=== PATIENT | male | born 1965 | race Caucasian/White ===

== ENCOUNTER 2017-07-17 17:10 | Emergency (ER) | payer MEDICAID, MEDICARE ==
--- NOTE | 2017-07-17 18:13 | UC ---
Lower Extremity/Ankle HPI - HPI Summary HPI Summary: Pt presents with right knee pain. He came back from vacay to [place] on Jun 17 and has hurt ever since. Denies specific injury. Worse with ambulation and weight bearing. Wearing knee brace today and has been taking ibuprofen for pain - mild relief. No previous injuries to that LE - History of Current Complaint Chief Complaint: UCLowerExtremity Stated Complaint: KNEE PAIN Time Seen by Provider: 07/17/17 17:46 Hx Obtained From: Patient Onset/Duration: Gradual Onset Severity Initially: Mild Severity Currently: Moderate Pain Intensity: 7 Pain Scale Used: 0-10 Numeric Aggravating Factor(s): Standing, Ambulation Alleviating Factor(s): Rest Able to Bear Weight: Yes - Allergies/Home Medications Allergies/Adverse Reactions: Allergies Allergy/AdvReac Type Severity Reaction Status Date / Time No Known Allergies Allergy Verified 07/17/17 17:33 Home Medications: Home Medications NK [No Home Medications Reported] 07/17/17 [History Confirmed 07/17/17] PMH/Surg Hx/FS Hx/Imm Hx Previously Healthy: Yes - Surgical History Surgical History: None - Social History Occupation: Employed Full-time Lives: Alone Alcohol Use: None Substance Use Type: None Smoking Status (MU): Never Smoked Tobacco Review of Systems Constitutional: Negative Respiratory: Negative Cardiovascular: Negative Neurovascular: Negative Musculoskeletal: Decreased ROM - Right knee, Edema - Right knee, Other: - Pain right knee Neurological: Negative All Other Systems Reviewed And Are Negative: Yes Physical Exam Triage Information Reviewed: Yes Appearance: Well-Appearing, Well-Nourished Vital Signs: Initial Vital Signs Temp 98.7 F 07/17/17 17:28 Pulse 82 07/17/17 17:28 Resp 20 07/17/17 17:28 BP 168/103 07/17/17 17:28 Pulse Ox 98 07/17/17 17:28 Vital Signs Reviewed: Yes Musculoskeletal: Positive: Strength Intact, ROM Limited @ - Right knee >90 deg due to pain. Full extension., Edema @ - mild right knee, Other: - Negative pricilla, A/P drawer, Freddie, and varus/valgus stress. Neurological: Positive: Alert Psychological: Positive: Age Appropriate Behavior Skin: Positive: Other - No ecchymosis right knee. Negative: rashes Lower Extremity Course/Dx - Course Course Of Treatment: XR knee. 1. No traumatic injury or significant arthropathic change at the RIGHT knee. 2. 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 In absence of prior exams to document stability with none available on the [facility] PACS radiographic surveillance beginning in 3 months time to assess for stability would be suggested. However if pain localizes to this region consider bone scan or contrast-enhanced MRI for further assessment. Ibuprofen for pain. Continue with brace. Light duty at work. F/u with orthopedics - Differential Dx/Diagnosis Differential Diagnosis/HQI/PQRI: Arthritis, Fracture (Closed), Sprain, Strain, Other - Meniscus tear. Provider Diagnoses: Internal derangement of the knee. Tibia fibroma Discharge - Discharge Plan Condition: Stable Disposition: HOME Patient Education Materials: Knee Sprain (ED) Forms: *Work Release Referrals: Mike Romero MD [Primary Care Provider] - Additional Instructions: 1) Follow up with Orthopedics at their next available appointment for further evaluation of your knee pain. The number is provided below. 2) Continue to wear the knee brace as tolerated for support. 3) Ibuprofen OTC for pain Your blood pressure was high at today's visit - please see your PCP within 4 weeks for recheck and re-evaluation. If you develop fever, SOB, chest pain, new or worsening symptoms - please call our office or go to ED. [facility] [address] [place] [id number]
--- NOTE | 2017-07-17 18:36 | RAD ---
Indication: RIGHT knee pain for one month without preceding injury. Comparison: None. Technique: RIGHT knee: AP, tunnel, lateral, sunrise views. Report: Normal articular alignment. Negative for joint effusion or fracture. Preserved joint spaces. Expansile probable cortical based lucent lesion at the lateral proximal metaphysis of the tibia measuring up to 3.4 cm AP by 3.3 cm transverse by 9.2 cm cephalocaudal. The lesion demonstrates a thin narrow sclerotic margin consistent with an indolent lesion. IMPRESSION: 1. No traumatic injury or significant arthropathic change at the RIGHT knee. 2. 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 In absence of prior exams to document stability with none available on the [facility] PACS radiographic surveillance beginning in 3 months time to assess for stability would be suggested. However if pain localizes to this region consider bone scan or contrast-enhanced MRI for further assessment.
== END 2017-07-17 19:09 | disposition home or self-care (01) ==
LOC: UCEAST 17:10
DX: M23.91 Unspecified internal derangement of right knee (principal); M89.8X6 Other specified disorders of bone, lower leg
CPT/HCPCS: 99201; G0463

== ENCOUNTER 2023-05-19 03:23 | Observation (INO) ==
[2023-05-19] MEDS ORDERED: Piperacillin/Tazobac 3.375 BAG 3.375 GM/100 ML BAG IV ONE (03:51)
[2023-05-19] MEDS ORDERED: Vancomycin 1,500 MG in NS 0.9% 250 ml 250 ML IVPB ONE (03:51)
[2023-05-19 04:28] LABS: Hematocrit 23.5 % (38-53); Hemoglobin 7.3 g/dL (13.2-16.3); Mean Corpuscular Hemoglobin 21.6 pg (27-33); Mean Corpuscular Hgb Conc 30.9 g/dL (31-36); Mean Platelet Volume 6.3 fL (7.5-11.2); Platelet Count 586 10^3/uL (150-450); Red Blood Count 3.37 10^6/uL (4.06-5.63); Red Cell Distribution Width 18.2 % (12-17); White Blood Count 10.2 10^3/uL (3.6-10.2)
[2023-05-19 04:39] LABS: Activated Partial Thrombo Time 34.2 seconds (26.0-38.0); INR 1.25 (0.83-1.13)
[2023-05-19 04:51] LABS: Albumin 2.9 g/dL (3.2-5.2); Calcium 7.8 mg/dL (8.6-10.3); Potassium 3.6 mmol/L (3.5-5.0); Total Bilirubin 0.6 mg/dL (0.2-1.0)
[2023-05-19 04:57] LABS: Albumin/Globulin Ratio 0.5 (1-3); C Reactive Protein 58.46 mg/L (<8.01); Creatinine, Serum 1.16 mg/dL (0.67-1.17); Globulin 6.2 g/dL (2-4); Total Protein 9.1 g/dL (6.4-8.9); eGFR CKD-EPI 73.5 (>60)
[2023-05-19 05:08] LABS: Hypochromasia 1+; Macrocytosis 1+; Microcytosis 1+
[2023-05-19 05:09] LABS: ABS Basophils 0.1 10^3/uL (0.0-0.1); ABS Eosinophils 0.6 10^3/uL (0.0-0.5); ABS Lymphocytes 1.5 10^3/uL (1.0-4.8); ABS Monocytes 0.7 10^3/uL (0.0-1.1); ABS Neutrophils 7.3 10^3/uL (1.5-7.6); Anisocytosis 1+; Eosinophil % 6.4 %; Lymphocyte % 14.4 %; Target Cells 1+
[2023-05-19 05:34] LABS: Erythrocyte Sed Rate 86 mm/Hr (0-19)
[2023-05-19] MEDS: Furosemide 40 mg/4 ml IV VIAL IV SLOW PU SCH (07:46)
[2023-05-19] MEDS: Enoxaparin 40 MG/0.4 ML SYR SUBCUT SCH (07:46)
[2023-05-19 09:15] LABS: % Iron Saturation 5 % (15-55); .Transferrin 275 mg/dL (203-362); Iron < 20 ug/dL (50-212); Total Iron Binding Capacity 385 mcg/dL (250-450); Unsaturated Iron Binding 365 ug/dL
[2023-05-19 09:29] LABS: Ferritin 9.6 ng/mL (24-336)
[2023-05-19] MEDS ORDERED: cefTRIAXone 1 gm/50 mL D5W 1 GM/50 ML BAG IV SCH (13:00)
[2023-05-19] MEDS ORDERED: Iron Sucrose 200 MG in NS 0.9% 100 ml BAG 100 ML IVPB ONE (13:54)
[2023-05-19 16:38] LABS: Calcium 8.1 mg/dL (8.6-10.3); Potassium 3.8 mmol/L (3.5-5.0)
[2023-05-19 16:44] LABS: Creatinine, Serum 0.97 mg/dL (0.67-1.17); eGFR CKD-EPI 91.1 (>60)
[2023-05-19 17:16] LABS: RBC Morphology Normal (Normal)
[2023-05-19 17:17] LABS: Hypochromasia 2+; Microcytosis 2+
[2023-05-19 17:18] LABS: ABS Basophils 0.1 10^3/uL (0.0-0.1); ABS Eosinophils 0.5 10^3/uL (0.0-0.5); ABS Lymphocytes 1.1 10^3/uL (1.0-4.8); ABS Monocytes 0.6 10^3/uL (0.0-1.1); ABS Nucleated RBC 0.01 10^3/ul; Anisocytosis 1+; Eosinophil % 6.8 %; Hematocrit 24.9 % (38-53); Hemoglobin 7.7 g/dL (13.2-16.3); Lymphocyte % 15.4 %; Mean Corpuscular Hemoglobin 21.6 pg (27-33); Mean Corpuscular Hgb Conc 30.8 g/dL (31-36); Mean Corpuscular Volume 70.2 fL (80-97); Mean Platelet Volume 6.4 fL (7.5-11.2); Nucleated Red Blood Cells % 0.2 /100 WBC (0.0-0.4); Platelet Count 507 10^3/uL (150-450); Red Blood Count 3.55 10^6/uL (4.06-5.63); Red Cell Distribution Width 17.9 % (12-17); White Blood Count 7.3 10^3/uL (3.6-10.2)
[2023-05-19 18:49] LABS: Magnesium 1.8 mg/dL (1.9-2.7)
[2023-05-20] MEDS: Furosemide 40 mg/4 ml IV VIAL IV SLOW PU SCH (08:52)
[2023-05-20] MEDS: Enoxaparin 40 MG/0.4 ML SYR SUBCUT SCH (08:52)
[2023-05-20] MEDS ORDERED: Iron Sucrose 200 MG in NS 0.9% 100 ml IVPB SCH (09:00)
[2023-05-20] MEDS ORDERED: Iron Sucrose 20 MG/ML 5 ML VIAL IV PUSH SCH (09:00)
[2023-05-20 09:21] LABS: Hematocrit 24.8 % (38-53); Hemoglobin 7.7 g/dL (13.2-16.3); Mean Corpuscular Hemoglobin 21.6 pg (27-33); Mean Corpuscular Volume 69.7 fL (80-97); Mean Platelet Volume 6.3 fL (7.5-11.2); Platelet Count 643 10^3/uL (150-450); Red Blood Count 3.56 10^6/uL (4.06-5.63); Red Cell Distribution Width 18.3 % (12-17); White Blood Count 7.8 10^3/uL (3.6-10.2)
[2023-05-20 09:55] LABS: Calcium 8.5 mg/dL (8.6-10.3); Creatinine, Serum 1.13 mg/dL (0.67-1.17); Potassium 4.6 mmol/L (3.5-5.0); eGFR CKD-EPI 75.8 (>60)
[2023-05-20 10:00] LABS: Folate 5.92 ng/mL (5.90-24.80)
[2023-05-20 10:40] LABS: Anisocytosis 1+; Hypochromasia 1+; Microcytosis 3+
[2023-05-20 10:43] LABS: ABS Basophils 0.1 10^3/uL (0.0-0.1); ABS Eosinophils 0.7 10^3/uL (0.0-0.5); ABS Lymphocytes 1.3 10^3/uL (1.0-4.8); ABS Monocytes 0.7 10^3/uL (0.0-1.1); Nucleated Red Blood Cells % 0.1 /100 WBC (0.0-0.4)
[2023-05-20 11:49] LABS: HDL Cholesterol 28.8 mg/dL
[2023-05-20] MEDS ORDERED: cefTRIAXone 1 gm/50 mL D5W 1 GM/50 ML BAG IV SCH (13:00)
[2023-05-20 14:46] VITALS: BP 147/79
[2023-05-23 11:16] LABS: Albumin 8.1 mg/dL; Creatinine, Random, U 125 mg/dL (16 - 326); Gamma Globulin 11.9 mg/dL; Protein,Total, Random Urine 35 mg/dL; Protein/Creatinine Ratio 0.28 mg/mg (<0.18)
[2023-05-23 11:57] LABS: Albumin 2.5 g/dL (3.4-4.7); Flag, M-protein Isotype Negative (Negative)
== END 2023-05-20 17:34 | disposition home or self-care (01) ==
LOC: EDHOLD 03:23 → ED 03:23 → SUATTDRO 06:41 → MED 13:30
PROVIDERS: ADMIT Internal Medicine; ATTEND Internal Medicine

== ENCOUNTER 2023-09-15 03:27 | Inpatient (IN) ==
[2023-09-15] MEDS ORDERED: Cefepime 2 GM in Dextrose 2 GM/50 ML BAG IV ONE (03:56)
[2023-09-15] MEDS ORDERED: Vancomycin 2,000 MG in NS 0.9% 250 ml 250 ML IVPB SCH (04:00)
[2023-09-15 05:21] LABS: Hematocrit 27.7 % (38-53); Hemoglobin 8.6 g/dL (13.2-16.3); Mean Corpuscular Hemoglobin 21.6 pg (27-33); Mean Corpuscular Hgb Conc 30.9 g/dL (31-36); Mean Corpuscular Volume 69.8 fL (80-97); Mean Platelet Volume 7.1 fL (7.5-11.2); Platelet Count 440 10^3/uL (150-450); Red Blood Count 3.97 10^6/uL (4.06-5.63); Red Cell Distribution Width 19.8 % (12-17); White Blood Count 22.8 10^3/uL (3.6-10.2)
[2023-09-15 05:34] LABS: Albumin 3.3 g/dL (3.2-5.2); Albumin/Globulin Ratio 0.5 (1-3); C Reactive Protein 333.98 mg/L (<8.01); Calcium 8.6 mg/dL (8.6-10.3); Creatinine, Serum 1.41 mg/dL (0.67-1.17); Globulin 6.3 g/dL (2-4); Potassium 3.6 mmol/L (3.5-5.0); Total Bilirubin 1.4 mg/dL (0.2-1.0); Total Protein 9.6 g/dL (6.4-8.9); eGFR CKD-EPI 57.8 (>60)
[2023-09-15 05:45] LABS: ABS Lymphocytes 0.7 10^3/uL (1.0-4.8); ABS Monocytes 0.6 10^3/uL (0.0-1.1); ABS Neutrophils 21.4 10^3/uL (1.5-7.6); Lymphocyte % 3.2 %
[2023-09-15] MEDS ORDERED: Lactated Ringers 1000 ml BAG 1,000 ML IV ONE (05:56)
[2023-09-15] MEDS ORDERED: Vancomycin 2,000 MG in NS 0.9% 500 ml BAG 500 ML IVPB ONE (06:00)
[2023-09-15] MEDS ORDERED: Senna TAB 8.6 mg TAB PO PRN (07:46)
[2023-09-15] MEDS ORDERED: Ondansetron 4 mg VIAL 2 MG/ML 2 ml VIAL IV PRN (07:46)
[2023-09-15] MEDS ORDERED: Polyethylene Glycol 3350 17 GM PACKET PO PRN (07:46)
[2023-09-15] MEDS: cefTRIAXone 1 gm/50 mL D5W 1 GM/50 ML BAG IV SCH (10:13)
[2023-09-15 17:00] LABS: Calcium 7.8 mg/dL (8.6-10.3); Creatinine, Serum 1.13 mg/dL (0.67-1.17); Potassium 3.9 mmol/L (3.5-5.0); eGFR CKD-EPI 75.3 (>60)
[2023-09-15] MEDS: Enoxaparin 40 MG/0.4 ML SYR SUBCUT SCH (22:15)
[2023-09-16] MEDS: cefTRIAXone 1 gm/50 mL D5W 1 GM/50 ML BAG IV SCH (08:31)
[2023-09-16] MEDS: Lubriderm LOTION 180 ML BTL TOPICAL SCH ×2 (10:50→21:05)
[2023-09-16 11:29] LABS: ABS Eosinophils 0.2 10^3/uL (0.0-0.5); ABS Monocytes 0.7 10^3/uL (0.0-1.1); ABS Neutrophils 11.7 10^3/uL (1.5-7.6); ABS Nucleated RBC 0.02 10^3/ul; Eosinophil % 1.2 %; Hematocrit 25.8 % (38-53); Lymphocyte % 7.4 %; Mean Corpuscular Hemoglobin 21.5 pg (27-33); Mean Corpuscular Volume 69.5 fL (80-97); Mean Platelet Volume 7.3 fL (7.5-11.2); Nucleated Red Blood Cells % 0.1 %/100WBC (0.0-0.8); Platelet Count 382 10^3/uL (150-450); Red Blood Count 3.72 10^6/uL (4.06-5.63); Red Cell Distribution Width 19.4 % (12-17); White Blood Count 13.7 10^3/uL (3.6-10.2)
[2023-09-16 11:45] LABS: Calcium 8.2 mg/dL (8.6-10.3); Creatinine, Serum 1.07 mg/dL (0.67-1.17); Potassium 3.9 mmol/L (3.5-5.0); eGFR CKD-EPI 80.4 (>60)
[2023-09-16] MEDS: Enoxaparin 40 MG/0.4 ML SYR SUBCUT SCH (21:05)
[2023-09-17 07:49] LABS: ABS Eosinophils 0.3 10^3/uL (0.0-0.5); ABS Lymphocytes 1.4 10^3/uL (1.0-4.8); ABS Monocytes 0.9 10^3/uL (0.0-1.1); ABS Neutrophils 9.3 10^3/uL (1.5-7.6); ABS Nucleated RBC 0.01 10^3/ul; Eosinophil % 2.7 %; Hematocrit 26.1 % (38-53); Hemoglobin 8.1 g/dL (13.2-16.3); Lymphocyte % 11.8 %; Mean Corpuscular Hemoglobin 21.7 pg (27-33); Mean Corpuscular Hgb Conc 31.2 g/dL (31-36); Mean Corpuscular Volume 69.5 fL (80-97); Mean Platelet Volume 7.7 fL (7.5-11.2); Nucleated Red Blood Cells % 0.1 %/100WBC (0.0-0.8); Platelet Count 416 10^3/uL (150-450); Red Blood Count 3.75 10^6/uL (4.06-5.63); Red Cell Distribution Width 19.6 % (12-17); White Blood Count 12.1 10^3/uL (3.6-10.2)
[2023-09-17 08:12] LABS: Calcium 8.2 mg/dL (8.6-10.3); Potassium 4.1 mmol/L (3.5-5.0); eGFR CKD-EPI 87.2 (>60)
[2023-09-17] MEDS: cefTRIAXone 1 gm/50 mL D5W 1 GM/50 ML BAG IV SCH (09:36)
[2023-09-17] MEDS: Lubriderm LOTION 180 ML BTL TOPICAL SCH ×2 (09:36→20:48)
[2023-09-17] MEDS ORDERED: Ferric Gluconate IV 250 MG in NS 0.9% 100 ml BAG 200 ML IVPB SCH (12:00)
[2023-09-17] MEDS: Ferric Gluconate IV 250 MG in NS 0.9% 250 ml 200 ML IVPB SCH (13:37)
[2023-09-17] MEDS: Enoxaparin 40 MG/0.4 ML SYR SUBCUT SCH (20:48)
[2023-09-18 09:51] LABS: Hematocrit 27.2 % (38-53); Hemoglobin 8.5 g/dL (13.2-16.3); Mean Corpuscular Hemoglobin 21.7 pg (27-33); Mean Corpuscular Hgb Conc 31.1 g/dL (31-36); Mean Corpuscular Volume 69.7 fL (80-97); Mean Platelet Volume 7.4 fL (7.5-11.2); Platelet Count 515 10^3/uL (150-450); Red Blood Count 3.91 10^6/uL (4.06-5.63); Red Cell Distribution Width 19.5 % (12-17); White Blood Count 12.8 10^3/uL (3.6-10.2)
[2023-09-18 09:58] LABS: Calcium 8.3 mg/dL (8.6-10.3); Creatinine, Serum 1.02 mg/dL (0.67-1.17); Potassium 4.2 mmol/L (3.5-5.0); eGFR CKD-EPI 85.2 (>60)
[2023-09-18] MEDS: cefTRIAXone 1 gm/50 mL D5W 1 GM/50 ML BAG IV SCH (10:16)
[2023-09-18 10:57] LABS: ABS Basophils 0.1 10^3/uL (0.0-0.1); ABS Eosinophils 0.5 10^3/uL (0.0-0.5); ABS Lymphocytes 1.4 10^3/uL (1.0-4.8); ABS Monocytes 0.7 10^3/uL (0.0-1.1); ABS Nucleated RBC 0.01 10^3/ul; Eosinophil % 4.1 %; Hypochromasia 1+; Lymphocyte % 11.2 %; Nucleated Red Blood Cells % 0.1 %/100WBC (0.0-0.8); Polychromasia 1+
[2023-09-18] MEDS: Ferric Gluconate IV 250 MG in NS 0.9% 250 ml 200 ML IVPB SCH (13:52)
[2023-09-18] MEDS: Lubriderm LOTION 180 ML BTL TOPICAL SCH (13:54)
[2023-09-18] MEDS: Enoxaparin 40 MG/0.4 ML SYR SUBCUT SCH (22:06)
[2023-09-19] MEDS: Lubriderm LOTION 180 ML BTL TOPICAL SCH ×2 (01:49→10:47)
[2023-09-19 06:09] LABS: Hematocrit 28.1 % (38-53); Hemoglobin 8.6 g/dL (13.2-16.3); Mean Corpuscular Hemoglobin 21.3 pg (27-33); Mean Corpuscular Hgb Conc 30.5 g/dL (31-36); Mean Corpuscular Volume 70.1 fL (80-97); Mean Platelet Volume 7.4 fL (7.5-11.2); Platelet Count 567 10^3/uL (150-450); Red Blood Count 4.01 10^6/uL (4.06-5.63); Red Cell Distribution Width 19.6 % (12-17)
[2023-09-19 06:25] LABS: ABS Basophils 0.1 10^3/uL (0.0-0.1); ABS Eosinophils 0.7 10^3/uL (0.0-0.5); ABS Lymphocytes 1.7 10^3/uL (1.0-4.8); ABS Monocytes 0.8 10^3/uL (0.0-1.1); ABS Neutrophils 9.6 10^3/uL (1.5-7.6); ABS Nucleated RBC 0.02 10^3/ul; Eosinophil % 5.5 %; Lymphocyte % 13.1 %; Nucleated Red Blood Cells % 0.2 %/100WBC (0.0-0.8)
[2023-09-19 06:35] LABS: Calcium 8.4 mg/dL (8.6-10.3); Creatinine, Serum 0.93 mg/dL (0.67-1.17); Potassium 4.4 mmol/L (3.5-5.0); eGFR CKD-EPI 95.2 (>60)
[2023-09-19 06:47] LABS: Magnesium 1.9 mg/dL (1.9-2.7)
[2023-09-19] MEDS: cefTRIAXone 1 gm/50 mL D5W 1 GM/50 ML BAG IV SCH (08:48)
[2023-09-19] MEDS: Ferric Gluconate IV 250 MG in NS 0.9% 250 ml 200 ML IVPB SCH (10:47)
[2023-09-19 13:52] VITALS: BP 141/90
== END 2023-09-19 16:18 | disposition home or self-care (01) | DRG 720 ==
LOC: ED 03:27 → EDHOLD 03:27 → SUATTDRO 07:46 → MEDTELE 14:48
PROVIDERS: ADMIT Internal Medicine; ATTEND Internal Medicine

== ENCOUNTER 2024-03-05 13:33 | Inpatient (IN) ==
[2024-03-05 14:48] LABS: Hematocrit 38.6 % (38-53); Hemoglobin 12.1 g/dL (13.2-16.3); Mean Corpuscular Hemoglobin 22.9 pg (27-33); Mean Corpuscular Hgb Conc 31.3 g/dL (31-36); Mean Corpuscular Volume 73.2 fL (80-97); Mean Platelet Volume 8.4 fL (7.5-11.2); Platelet Count 430 10^3/uL (150-450); Red Blood Count 5.27 10^6/uL (4.06-5.63); Red Cell Distribution Width 19.6 % (12-17); White Blood Count 10.1 10^3/uL (3.6-10.2)
[2024-03-05 14:54] LABS: INR 1.32 (0.83-1.13)
[2024-03-05 15:09] LABS: ABS Basophils 0.1 10^3/uL (0.0-0.1); ABS Eosinophils 0.1 10^3/uL (0.0-0.5); ABS Lymphocytes 1.2 10^3/uL (1.0-4.8); ABS Monocytes 0.7 10^3/uL (0.0-1.1); ABS Nucleated RBC 0.02 10^3/ul; Eosinophil % 1.2 %; Lymphocyte % 12.2 %; Nucleated Red Blood Cells % 0.2 %/100WBC (0.0-0.8)
[2024-03-05 15:42] LABS: ALT 13 U/L (7-52); Albumin 2.9 g/dL (3.2-5.2); Albumin/Globulin Ratio 0.6 (1-3); Alkaline Phosphatase 95 U/L (35-149); Anion Gap 5 mmol/L (2-16); Blood Urea Nitrogen 20 mg/dL (6-24); C Reactive Protein 124.87 mg/L (<8.01); CO2 Carbon Dioxide 28 mmol/L (22-32); Calcium 7.9 mg/dL (8.6-10.3); Chloride 100 mmol/L (101-111); Creatinine, Serum 1.12 mg/dL (0.67-1.17); Globulin 4.8 g/dL (2-4); Glucose 96 mg/dL (70-100); Sodium 133 mmol/L (135-145); Total Bilirubin 1.6 mg/dL (0.2-1.0); Total Protein 7.7 g/dL (6.4-8.9); eGFR CKD-EPI 76.1 (>60)
[2024-03-05] MEDS: Furosemide 40 mg/4 ml IV VIAL IV ONE (16:50)
[2024-03-05] MEDS: Piperacillin/Tazobac 3.375 BAG 3.375 GM/100 ML BAG IV ONE (16:57)
[2024-03-05] MEDS: Vancomycin 1,500 MG in NS 0.9% 250 ml 250 ML IVPB ONE (18:51)
[2024-03-05] MEDS ORDERED: Vancomycin per Pharmacy 1 EA NOTE FOLLOW UP SCH (22:00)
[2024-03-06 01:23] LABS: Potassium Redraw 3.5 mmol/L (3.5-5.0)
[2024-03-06] MEDS: cefTRIAXone 2 gm/50 mL D5W 2 GM/50 ML BAG IV SCH (02:09)
[2024-03-06] MEDS: Enoxaparin 40 MG/0.4 ML SYR SUBCUT SCH (02:10)
[2024-03-06] MEDS: Nystatin TOP POWDER 15 GM BTL TOPICAL SCH (02:11)
[2024-03-06] MEDS ORDERED: Dextrose 50% Syringe 50 ml 25 GM/50 ML SYRINGE IV PUSH PRN (03:44)
[2024-03-06] MEDS: Potassium Chloride LIQUID 20 MEQ/15 ML LIQUID PO ONE (05:48)
[2024-03-06] MEDS: Potassium Chlor 20 meq TAB.ER PO ONE (06:27)
[2024-03-06 07:26] LABS: Calcium 7.8 mg/dL (8.6-10.3); Creatinine, Serum 1.24 mg/dL (0.67-1.17); Magnesium 1.8 mg/dL (1.9-2.7); Phosphorus 3.9 mg/dL (2.5-5.0); Potassium 3.7 mmol/L (3.5-5.0); eGFR CKD-EPI 67.4 (>60)
[2024-03-06] MEDS: Vancomycin 1,250 MG in NS 0.9% 250 ml 250 ML IVPB SCH (07:28)
[2024-03-06 07:46] LABS: Ferritin 27.9 ng/mL (24-336)
[2024-03-06] MEDS ORDERED: Sulfur Hexaflouride MICROSPHR 25 MG VIAL ONE (12:27)
[2024-03-06] MEDS: Sulfur Hexaflouride MICROSPHR 25 MG VIAL IV ONE (12:56)
[2024-03-06] MEDS: Furosemide 40 mg/4 ml IV VIAL IV ONE (14:34)
[2024-03-06] MEDS: Magnesium Sulfate IV 1GM/100ML 1 GM/100 ML BAG IV ONE (16:38)
[2024-03-06] MEDS: Ferric Gluconate IV 250 MG in NS 0.9% 250 ml 200 ML IVPB ONE (17:13)
[2024-03-07] MEDS ORDERED: Vancomycin Trough Check NOTE FOLLOW UP ONE (06:00)
[2024-03-07 07:44] LABS: ABS Basophils 0.1 10^3/uL (0.0-0.1); ABS Eosinophils 0.2 10^3/uL (0.0-0.5); ABS Lymphocytes 1.4 10^3/uL (1.0-4.8); ABS Monocytes 0.7 10^3/uL (0.0-1.1); ABS Neutrophils 8.9 10^3/uL (1.5-7.6); ABS Nucleated RBC 0.01 10^3/ul; Eosinophil % 1.7 %; Hematocrit 38.9 % (38-53); Lymphocyte % 12.1 %; Mean Corpuscular Hemoglobin 22.7 pg (27-33); Mean Corpuscular Hgb Conc 30.8 g/dL (31-36); Mean Corpuscular Volume 73.6 fL (80-97); Mean Platelet Volume 8.2 fL (7.5-11.2); Nucleated Red Blood Cells % 0.1 %/100WBC (0.0-0.8); Platelet Count 496 10^3/uL (150-450); Red Blood Count 5.28 10^6/uL (4.06-5.63); Red Cell Distribution Width 20.5 % (12-17); White Blood Count 11.2 10^3/uL (3.6-10.2)
[2024-03-07 08:07] LABS: Calcium 8.2 mg/dL (8.6-10.3); Creatinine, Serum 1.13 mg/dL (0.67-1.17); Magnesium 1.9 mg/dL (1.9-2.7); Potassium 4.4 mmol/L (3.5-5.0); eGFR CKD-EPI 75.3 (>60)
[2024-03-07] MEDS: Magnesium Sulfate IV 1GM/100ML 1 GM/100 ML BAG IV ONE (09:10)
[2024-03-07] MEDS: Furosemide 40 mg/4 ml IV VIAL IV ONE (09:52)
[2024-03-07 09:58] LABS: Albumin/Globulin Ratio 0.6 (1-3); Direct Bilirubin 0.4 mg/dL (0.03-0.18); Globulin 4.7 g/dL (2-4); HDL Cholesterol 18.1 mg/dL; Indirect Bilirubin 0.6 mg/dL (0.3-1.0); Total Protein 7.7 g/dL (6.4-8.9)
[2024-03-07 13:53] VITALS: BP 148/98
== END 2024-03-07 14:45 | disposition home or self-care (01) | DRG 383 ==
LOC: ED 13:33 → EDHOLD 13:33 → SUATTDRO 18:35 → MEDTELE 20:13 → SUATTDRO 03-06 10:44
PROVIDERS: ADMIT Internal Medicine; ATTEND Hospitalist

== ENCOUNTER 2024-03-15 14:46 | Inpatient (IN) ==
[2024-03-15 16:02] LABS: Albumin 3.6 g/dL (3.2-5.2); Albumin/Globulin Ratio 0.6 (1-3); Calcium 8.9 mg/dL (8.6-10.3); Creatinine, Serum 1.14 mg/dL (0.67-1.17); Globulin 5.6 g/dL (2-4); Total Bilirubin 2.1 mg/dL (0.2-1.0); Total Protein 9.2 g/dL (6.4-8.9); eGFR CKD-EPI 74.5 (>60)
[2024-03-15 16:07] LABS: ABS Basophils 0.1 10^3/uL (0.0-0.1); ABS Eosinophils 0.1 10^3/uL (0.0-0.5); ABS Lymphocytes 1.9 10^3/uL (1.0-4.8); ABS Monocytes 0.6 10^3/uL (0.0-1.1); ABS Neutrophils 7.6 10^3/uL (1.5-7.6); ABS Nucleated RBC 0.01 10^3/ul; Eosinophil % 0.9 %; Hematocrit 37.2 % (38-53); Hemoglobin 11.4 g/dL (13.2-16.3); Lymphocyte % 18.6 %; Mean Corpuscular Hemoglobin 22.9 pg (27-33); Mean Corpuscular Hgb Conc 30.7 g/dL (31-36); Mean Corpuscular Volume 74.6 fL (80-97); Mean Platelet Volume 8.1 fL (7.5-11.2); Nucleated Red Blood Cells % 0.1 %/100WBC (0.0-0.8); Platelet Count 514 10^3/uL (150-450); Red Blood Count 4.99 10^6/uL (4.06-5.63); Red Cell Distribution Width 22.6 % (12-17); White Blood Count 10.3 10^3/uL (3.6-10.2)
[2024-03-15 16:29] LABS: High Sensitivity Troponin 1 Hr 10 pg/mL (<20)
[2024-03-15 16:43] LABS: Calcium 8.5 mg/dL (8.6-10.3); Creatinine, Serum 1.11 mg/dL (0.67-1.17); Potassium 4.5 mmol/L (3.5-5.0)
[2024-03-15 18:32] LABS: INR 1.36 (0.83-1.13)
[2024-03-15 21:38] LABS: HIV 4th Generation Nonreactive (Nonreactive)
[2024-03-15 21:45] LABS: Hepatitis C Antibody Negative (Negative)
[2024-03-15 22:35] LABS: Ferritin 57.9 ng/mL (24-336)
[2024-03-15] MEDS: Furosemide 20 mg/2 ml IV VIAL IV ONE (23:47)
[2024-03-16 01:26] LABS: C Reactive Protein 54.53 mg/L (<8.01)
[2024-03-16] MEDS: Enoxaparin 40 MG/0.4 ML SYR SUBCUT SCH (02:17)
[2024-03-16 07:01] LABS: ABS Basophils 0.1 10^3/uL (0.0-0.1); ABS Eosinophils 0.2 10^3/uL (0.0-0.5); ABS Lymphocytes 1.3 10^3/uL (1.0-4.8); ABS Monocytes 0.7 10^3/uL (0.0-1.1); ABS Neutrophils 6.3 10^3/uL (1.5-7.6); ABS Nucleated RBC 0.01 10^3/ul; Eosinophil % 1.8 %; Hematocrit 37.1 % (38-53); Hemoglobin 11.4 g/dL (13.2-16.3); Lymphocyte % 15.3 %; Mean Corpuscular Hemoglobin 23.5 pg (27-33); Mean Corpuscular Hgb Conc 30.8 g/dL (31-36); Mean Corpuscular Volume 76.3 fL (80-97); Mean Platelet Volume 7.8 fL (7.5-11.2); Nucleated Red Blood Cells % 0.2 %/100WBC (0.0-0.8); Platelet Count 432 10^3/uL (150-450); Red Blood Count 4.86 10^6/uL (4.06-5.63); Red Cell Distribution Width 22.4 % (12-17); White Blood Count 8.6 10^3/uL (3.6-10.2)
[2024-03-16 07:15] LABS: Calcium 8.4 mg/dL (8.6-10.3); Creatinine, Serum 1.11 mg/dL (0.67-1.17); Potassium 4.3 mmol/L (3.5-5.0)
[2024-03-16] MEDS: Bacitracin OINTMENT TUBE TOPICAL SCH (09:34)
[2024-03-17 06:58] LABS: Calcium 8.2 mg/dL (8.6-10.3); Creatinine, Serum 1.1 mg/dL (0.67-1.17); Magnesium 1.9 mg/dL (1.9-2.7); Potassium 4.7 mmol/L (3.5-5.0); eGFR CKD-EPI 77.8 (>60)
[2024-03-17 07:13] LABS: ABS Basophils 0.1 10^3/uL (0.0-0.1); ABS Eosinophils 0.2 10^3/uL (0.0-0.5); ABS Lymphocytes 1.4 10^3/uL (1.0-4.8); ABS Monocytes 0.6 10^3/uL (0.0-1.1); ABS Neutrophils 5.2 10^3/uL (1.5-7.6); ABS Nucleated RBC 0.01 10^3/ul; Eosinophil % 2.3 %; Hematocrit 31.8 % (38-53); Hemoglobin 10.2 g/dL (13.2-16.3); Lymphocyte % 18.7 %; Mean Corpuscular Volume 74.8 fL (80-97); Mean Platelet Volume 7.7 fL (7.5-11.2); Nucleated Red Blood Cells % 0.1 %/100WBC (0.0-0.8); Platelet Count 400 10^3/uL (150-450); Red Blood Count 4.24 10^6/uL (4.06-5.63); White Blood Count 7.4 10^3/uL (3.6-10.2)
[2024-03-17] MEDS: Ferric Gluconate IV 250 MG in NS 0.9% 250 ml 200 ML IVPB SCH (09:48)
[2024-03-18 07:02] LABS: ABS Basophils 0.1 10^3/uL (0.0-0.1); ABS Eosinophils 0.2 10^3/uL (0.0-0.5); ABS Lymphocytes 1.4 10^3/uL (1.0-4.8); ABS Monocytes 0.7 10^3/uL (0.0-1.1); ABS Neutrophils 4.4 10^3/uL (1.5-7.6); ABS Nucleated RBC 0.01 10^3/ul; Eosinophil % 2.2 %; Hematocrit 32.7 % (38-53); Hemoglobin 10.1 g/dL (13.2-16.3); Lymphocyte % 20.8 %; Mean Corpuscular Hemoglobin 23.3 pg (27-33); Mean Corpuscular Volume 75.4 fL (80-97); Mean Platelet Volume 7.3 fL (7.5-11.2); Nucleated Red Blood Cells % 0.1 %/100WBC (0.0-0.8); Platelet Count 403 10^3/uL (150-450); Red Blood Count 4.34 10^6/uL (4.06-5.63); Red Cell Distribution Width 22.3 % (12-17); White Blood Count 6.7 10^3/uL (3.6-10.2)
[2024-03-18 08:01] LABS: Calcium 8.3 mg/dL (8.6-10.3); Creatinine, Serum 1.05 mg/dL (0.67-1.17); Potassium 4.7 mmol/L (3.5-5.0); eGFR CKD-EPI 82.3 (>60)
[2024-03-18] MEDS: Sulfur Hexaflouride MICROSPHR 25 MG VIAL IV ONE (08:50)
[2024-03-18] MEDS ORDERED: Sulfur Hexaflouride MICROSPHR 25 MG VIAL ONE (09:04)
[2024-03-18 21:50] LABS: Folate 6.21 ng/mL (5.90-24.80)
[2024-03-19 08:12] LABS: ABS Basophils 0.1 10^3/uL (0.0-0.1); ABS Eosinophils 0.1 10^3/uL (0.0-0.5); ABS Lymphocytes 1.3 10^3/uL (1.0-4.8); ABS Monocytes 0.5 10^3/uL (0.0-1.1); Eosinophil % 2.4 %; Hematocrit 32.9 % (38-53); Hemoglobin 10.3 g/dL (13.2-16.3); Lymphocyte % 21.3 %; Mean Corpuscular Hemoglobin 23.6 pg (27-33); Mean Corpuscular Hgb Conc 31.3 g/dL (31-36); Mean Corpuscular Volume 75.4 fL (80-97); Mean Platelet Volume 7.2 fL (7.5-11.2); Nucleated Red Blood Cells % 0.1 %/100WBC (0.0-0.8); Platelet Count 428 10^3/uL (150-450); Red Blood Count 4.37 10^6/uL (4.06-5.63); Red Cell Distribution Width 23.2 % (12-17); White Blood Count 5.9 10^3/uL (3.6-10.2)
[2024-03-19 09:07] LABS: Calcium 8.6 mg/dL (8.6-10.3); Creatinine, Serum 0.99 mg/dL (0.67-1.17); Magnesium 1.9 mg/dL (1.9-2.7); Potassium 4.9 mmol/L (3.5-5.0); eGFR CKD-EPI 88.3 (>60)
[2024-03-19] MEDS ORDERED: Regadenoson 0.4 MG/5 ML SYRINGE ONE (09:41)
[2024-03-19] MEDS ORDERED: Aminophylline 25 MG/ML VIAL ONE (09:41)
[2024-03-19] MEDS ORDERED: LORazepam 2 mg VIAL 1 ml ONE (09:44)
[2024-03-19] MEDS: Bacitracin OINTMENT TUBE TOPICAL SCH (15:50)
[2024-03-20] MEDS: Magnesium Sulfate 2 gm BAG 2 GM/50 ML BAG IVPB ONE (01:23)
[2024-03-20 06:27] LABS: Hematocrit 37.6 % (38-53); Hemoglobin 11.7 g/dL (13.2-16.3); Mean Corpuscular Hemoglobin 23.8 pg (27-33); Mean Corpuscular Hgb Conc 31.1 g/dL (31-36); Mean Corpuscular Volume 76.5 fL (80-97); Red Blood Count 4.91 10^6/uL (4.06-5.63); Red Cell Distribution Width 24.2 % (12-17); White Blood Count 6.9 10^3/uL (3.6-10.2)
[2024-03-20 07:23] LABS: Calcium 8.7 mg/dL (8.6-10.3); Creatinine, Serum 0.98 mg/dL (0.67-1.17); Magnesium 2.2 mg/dL (1.9-2.7); eGFR CKD-EPI 89.4 (>60)
[2024-03-20 07:24] LABS: ABS Eosinophils 0.2 10^3/uL (0.0-0.5); ABS Lymphocytes 1.4 10^3/uL (1.0-4.8); ABS Monocytes 0.5 10^3/uL (0.0-1.1); ABS Neutrophils 4.8 10^3/uL (1.5-7.6); ABS Nucleated RBC 0.02 10^3/ul; Anisocytosis 1+; Eosinophil % 2.5 %; Lymphocyte % 19.8 %; Mean Platelet Volume 7.7 fL (7.5-11.2); Nucleated Red Blood Cells % 0.2 %/100WBC (0.0-0.8); Platelet Count 351 10^3/uL (150-450)
[2024-03-21 07:15] LABS: ABS Basophils 0.1 10^3/uL (0.0-0.1); ABS Eosinophils 0.2 10^3/uL (0.0-0.5); ABS Lymphocytes 1.3 10^3/uL (1.0-4.8); ABS Monocytes 0.5 10^3/uL (0.0-1.1); ABS Neutrophils 3.8 10^3/uL (1.5-7.6); Hematocrit 35.3 % (38-53); Hemoglobin 11.2 g/dL (13.2-16.3); Lymphocyte % 22.1 %; Mean Corpuscular Hemoglobin 23.7 pg (27-33); Mean Corpuscular Hgb Conc 31.6 g/dL (31-36); Mean Platelet Volume 7.2 fL (7.5-11.2); Platelet Count 422 10^3/uL (150-450); Red Blood Count 4.71 10^6/uL (4.06-5.63); Red Cell Distribution Width 23.6 % (12-17)
[2024-03-21 07:27] LABS: Calcium 8.8 mg/dL (8.6-10.3); Creatinine, Serum 1.01 mg/dL (0.67-1.17); Potassium 4.8 mmol/L (3.5-5.0); eGFR CKD-EPI 86.2 (>60)
[2024-03-21] MEDS ORDERED: nitroGLYCERIN DRIP 25,000 MCG/250 ML BTL ONE (08:35)
[2024-03-21] MEDS ORDERED: Heparin 2 UNITS/ML 1000 mls 2,000 ML IV ONE (08:35)
[2024-03-21] MEDS ORDERED: fentaNYL 100 mcg/2 ml 50 MCG/ML VIAL ONE ×2 (08:35→10:26)
[2024-03-21] MEDS ORDERED: VERAPAMIL 2.5 MG/ML 2 ML VIAL ** 5 mg/2 ml ONE (08:35)
[2024-03-21] MEDS ORDERED: Lidocaine 1% MPF 5 ML VIAL ONE (08:35)
[2024-03-21] MEDS ORDERED: Iohexol 350 (CONTRAST) 100 ML PAK IV ONE ×2 (08:35→10:04)
[2024-03-21] MEDS ORDERED: Midazolam 5 mg/5 ml VIAL 1 mg/ml 5 ml VIAL (5 mg) ONE (08:35)
[2024-03-21] MEDS ORDERED: Heparin 1,000 UNIT/ML 10 ml (10,000 UNITS) CATHLAB/DIALYSIS ONE (08:35)
[2024-03-21] MEDS: NS 0.9% 1000 ml BAG 1,000 ML IV SCH (10:59)
[2024-03-22 07:06] LABS: ABS Basophils 0.1 10^3/uL (0.0-0.1); ABS Eosinophils 0.2 10^3/uL (0.0-0.5); ABS Lymphocytes 1.3 10^3/uL (1.0-4.8); ABS Monocytes 0.5 10^3/uL (0.0-1.1); ABS Neutrophils 3.9 10^3/uL (1.5-7.6); Eosinophil % 3.4 %; Hematocrit 37.5 % (38-53); Hemoglobin 11.8 g/dL (13.2-16.3); Lymphocyte % 22.2 %; Mean Corpuscular Hgb Conc 31.4 g/dL (31-36); Mean Corpuscular Volume 76.2 fL (80-97); Mean Platelet Volume 7.2 fL (7.5-11.2); Platelet Count 407 10^3/uL (150-450); Red Blood Count 4.92 10^6/uL (4.06-5.63); Red Cell Distribution Width 24.9 % (12-17); White Blood Count 5.9 10^3/uL (3.6-10.2)
[2024-03-22 08:01] LABS: Calcium 8.6 mg/dL (8.6-10.3); Creatinine, Serum 1.01 mg/dL (0.67-1.17); eGFR CKD-EPI 86.2 (>60)
[2024-03-22 10:03] VITALS: BP 127/83
== END 2024-03-22 13:30 | disposition home or self-care (01) | DRG 192 ==
LOC: ED 14:46 → EDHOLD 14:46 → SUATTDRO 18:41 → MED 23:43 → MEDTELE 03-21 11:38
PROVIDERS: ADMIT Internal Medicine; ATTEND Hospitalist

== ENCOUNTER 2024-06-10 17:08 | Observation (INO) ==
[2024-06-10 21:05] LABS: ABS Basophils 0.1 10^3/uL (0.0-0.1); ABS Eosinophils 0.2 10^3/uL (0.0-0.5); ABS Lymphocytes 1.2 10^3/uL (1.0-4.8); ABS Monocytes 0.6 10^3/uL (0.0-1.1); ABS Neutrophils 6.1 10^3/uL (1.5-7.6); ABS Nucleated RBC 0.01 10^3/ul; Eosinophil % 2.2 %; Hematocrit 44.2 % (38-53); Lymphocyte % 14.4 %; Mean Corpuscular Hemoglobin 28.3 pg (27-33); Mean Corpuscular Hgb Conc 31.6 g/dL (31-36); Mean Corpuscular Volume 89.6 fL (80-97); Mean Platelet Volume 7.2 fL (7.5-11.2); Nucleated Red Blood Cells % 0.1 %/100WBC (0.0-0.8); Platelet Count 378 10^3/uL (150-450); Red Blood Count 4.93 10^6/uL (4.06-5.63)
[2024-06-10 21:25] LABS: High Sens Troponin Baseline 9 pg/mL (<20)
[2024-06-10] MEDS: Furosemide 40 mg/4 ml IV VIAL IV SLOW PU ONE (21:44)
[2024-06-10 22:04] LABS: Urine Appearance Clear; Urine Bilirubin Negative (Negative); Urine Blood Trace (Negative); Urine Color Yellow; Urine Glucose Negative (Negative); Urine Ketones Negative (Negative); Urine Nitrite Negative (Negative); Urine Protein 2+ (>=100 mg/dL) (Negative); Urine Specific Gravity 1.021 (1.002-1.030); Urine Urobilinogen 1+ (Negative); Urine pH 5.5 (5.0-8.0)
[2024-06-10 22:14] LABS: Urine Bacteria Absent /HPF (Absent); Urine Red Blood Cell Trace(0-2/hpf) /HPF (0-Trace); Urine White Blood Cell Trace(0-5/hpf) /HPF (0-Trace)
[2024-06-10 22:23] LABS: High Sensitivity Troponin 1 Hr 11 pg/mL (<20)
[2024-06-10 22:35] LABS: Anion Gap 13 mmol/L (2-16); Blood Urea Nitrogen 16 mg/dL (6-24); CO2 Carbon Dioxide 24 mmol/L (22-32); Calcium 8.7 mg/dL (8.6-10.3); Chloride 101 mmol/L (101-111); Creatinine, Serum 1.08 mg/dL (0.67-1.17); Glucose 92 mg/dL (70-100); Sodium 138 mmol/L (135-145); eGFR CKD-EPI 79.5 (>60)
[2024-06-10 22:37] LABS: ALT 6 U/L (7-52); Albumin 3.4 g/dL (3.2-5.2); Albumin/Globulin Ratio 0.6 (1-3); Alkaline Phosphatase 122 U/L (35-149); Globulin 5.9 g/dL (2-4); TSH Ultra Thyroid Stim Horm 6.09 mcIU/mL (0.34-5.60); Total Bilirubin 1.4 mg/dL (0.2-1.0); Total Protein 9.3 g/dL (6.4-8.9)
[2024-06-11] MEDS: Furosemide 40 mg/4 ml IV VIAL IV ONE (00:15)
[2024-06-11] MEDS ORDERED: Dextrose 50% Syringe 50 ml 25 GM/50 ML SYRINGE IV PUSH PRN (03:49)
[2024-06-11] MEDS: Enoxaparin 40 MG/0.4 ML SYR SUBCUT SCH (04:16)
[2024-06-11] MEDS: Furosemide 40 mg/4 ml IV VIAL IV SLOW PU ONE (06:35)
[2024-06-11 07:22] LABS: Magnesium 1.9 mg/dL (1.9-2.7); Potassium Redraw 4.4 mmol/L (3.5-5.0)
[2024-06-11 07:24] LABS: Calcium 8.6 mg/dL (8.6-10.3); Creatinine, Serum 1.13 mg/dL (0.67-1.17); Magnesium 1.9 mg/dL (1.9-2.7); Potassium 4.4 mmol/L (3.5-5.0); eGFR CKD-EPI 75.3 (>60)
[2024-06-11 08:25] LABS: ABS Basophils 0.1 10^3/uL (0.0-0.1); ABS Eosinophils 0.2 10^3/uL (0.0-0.5); ABS Lymphocytes 1.2 10^3/uL (1.0-4.8); ABS Monocytes 0.6 10^3/uL (0.0-1.1); ABS Neutrophils 4.6 10^3/uL (1.5-7.6); ABS Nucleated RBC 0.01 10^3/ul; Eosinophil % 3.4 %; Hematocrit 38.2 % (38-53); Hemoglobin 12.7 g/dL (13.2-16.3); Lymphocyte % 17.5 %; Mean Corpuscular Hemoglobin 28.7 pg (27-33); Mean Corpuscular Hgb Conc 33.2 g/dL (31-36); Mean Corpuscular Volume 86.5 fL (80-97); Mean Platelet Volume 7.4 fL (7.5-11.2); Nucleated Red Blood Cells % 0.2 %/100WBC (0.0-0.8); Platelet Count 382 10^3/uL (150-450); RBC Morphology Normal (Normal); Red Blood Count 4.42 10^6/uL (4.06-5.63); Red Cell Distribution Width 17.2 % (12-17); White Blood Count 6.7 10^3/uL (3.6-10.2)
[2024-06-11 09:54] LABS: Free T4 0.83 ng/dL (0.61-1.12)
[2024-06-11 10:05] LABS: Folate 7.7 ng/mL (5.90-24.80)
[2024-06-11] MEDS: Furosemide 20 mg/2 ml IV VIAL IV SLOW PU ONE (10:12)
[2024-06-11 14:18] LABS: Ferritin 23.4 ng/mL (24-336)
[2024-06-11] MEDS: Cyanocobalamin INJ 1,000 MCG/ML VIAL 1 ML VIAL IM ONE (15:25)
[2024-06-11] MEDS: Ferric Gluconate IV 250 MG in NS 0.9% 250 ml 200 ML IVPB SCH (17:09)
[2024-06-12] MEDS: Sulfur Hexaflouride MICROSPHR 25 MG VIAL IV PRN (09:56)
[2024-06-12] MEDS: Lidocaine 1% MPF 5 ML VIAL INJ ONE (12:00)
[2024-06-12 13:54] LABS: Hematocrit 38.8 % (38-53); Hemoglobin 12.7 g/dL (13.2-16.3); Mean Corpuscular Hemoglobin 28.4 pg (27-33); Mean Corpuscular Hgb Conc 32.7 g/dL (31-36); Mean Corpuscular Volume 86.9 fL (80-97); Mean Platelet Volume 6.9 fL (7.5-11.2); Platelet Count 398 10^3/uL (150-450); Red Blood Count 4.46 10^6/uL (4.06-5.63); Red Cell Distribution Width 16.5 % (12-17); White Blood Count 6.9 10^3/uL (3.6-10.2)
[2024-06-12 14:01] LABS: ABS Basophils 0.1 10^3/uL (0.0-0.1); ABS Eosinophils 0.3 10^3/uL (0.0-0.5); ABS Monocytes 0.6 10^3/uL (0.0-1.1); ABS Neutrophils 4.9 10^3/uL (1.5-7.6); Eosinophil % 4.7 %; Lymphocyte % 14.9 %
[2024-06-12 14:23] LABS: Calcium 8.6 mg/dL (8.6-10.3); Creatinine, Serum 1.02 mg/dL (0.67-1.17); Magnesium 1.8 mg/dL (1.9-2.7); Potassium 4.4 mmol/L (3.5-5.0); eGFR CKD-EPI 85.2 (>60)
[2024-06-12] MEDS: Furosemide 20 mg/2 ml IV VIAL IV SLOW PU ONE (15:33)
[2024-06-12] MEDS: Magnesium Sulfate IV 1GM/100ML 1 GM/100 ML BAG IV ONE (15:38)
[2024-06-13 06:15] LABS: ABS Basophils 0.1 10^3/uL (0.0-0.1); ABS Eosinophils 0.3 10^3/uL (0.0-0.5); ABS Lymphocytes 1.2 10^3/uL (1.0-4.8); ABS Monocytes 0.7 10^3/uL (0.0-1.1); ABS Neutrophils 5.4 10^3/uL (1.5-7.6); ABS Nucleated RBC 0.01 10^3/ul; Eosinophil % 3.9 %; Hematocrit 39.8 % (38-53); Hemoglobin 12.8 g/dL (13.2-16.3); Lymphocyte % 15.9 %; Mean Corpuscular Hemoglobin 27.9 pg (27-33); Mean Corpuscular Hgb Conc 32.2 g/dL (31-36); Mean Corpuscular Volume 86.8 fL (80-97); Mean Platelet Volume 7.3 fL (7.5-11.2); Nucleated Red Blood Cells % 0.1 %/100WBC (0.0-0.8); Platelet Count 446 10^3/uL (150-450); Red Blood Count 4.59 10^6/uL (4.06-5.63); Red Cell Distribution Width 17.2 % (12-17); White Blood Count 7.7 10^3/uL (3.6-10.2)
[2024-06-13 06:35] LABS: Calcium 8.7 mg/dL (8.6-10.3); Creatinine, Serum 1.05 mg/dL (0.67-1.17); Magnesium 1.9 mg/dL (1.9-2.7); Potassium 4.7 mmol/L (3.5-5.0); eGFR CKD-EPI 82.3 (>60)
[2024-06-13] MEDS: Iohexol 350 (CONTRAST) 500 ML MDV IV ONE (08:16)
[2024-06-13 14:40] VITALS: BP 120/79
== END 2024-06-13 15:35 | disposition home or self-care (01) ==
LOC: ED 17:08 → EDHOLD 17:08 → SUATTDRO 06-11 02:25 → MEDTELE 06-11 14:07
PROVIDERS: ADMIT Student in an Organized Health Care Education/Training Program; ATTEND Internal Medicine